=== PATIENT | female | born 1970 | race Caucasian/White ===

== ENCOUNTER 2023-02-22 16:29 | Emergency (ER) | payer MEDICAID, SELFPAY ==
[2023-02-22 16:41] VITALS: BP 131/89; PULSE 89; RESP 18; TEMP 36.6; O2SAT 99
--- NOTE | 2023-02-22 16:50 | ED.GENADULT ---
HPI - General Adult General Chief complaint: Ear Stated complaint: cotton stuck in left ear Source: patient Mode of arrival: ambulatory Limitations: no limitations History of Present Illness HPI narrative: Patient presents for evaluation of cotton in the left ear canal. She temp today clean her ears last night with a Q-tip out of her left ear, the cotton was no longer adhered to the swab. She denies any tinnitus, hearing loss, drainage from the ear. She attempted to removal unsuccessfully. A friend attempted to irrigate the ear without successful removal of the cotton. Related Data Home Medications Medication Instructions Recorded Confirmed budesonide-formoterol HFA 160 2 puff inhalation BID 02/22/23 02/22/23 mcg-4.5 mcg/actuation aerosol inhaler (Symbicort) lisinopril 10 mg tablet 10 mg PO DAILY 02/22/23 02/22/23 montelukast 10 mg tablet 10 mg PO DAILY 02/22/23 02/22/23 phentermine 37.5 mg tablet 37.5 mg PO DAILY 02/22/23 02/22/23 sertraline 100 mg tablet 100 mg PO DAILY 02/22/23 02/22/23 Allergies Allergy/AdvReac Type Severity Reaction Status Date / Time No Known Allergies Allergy Verified 02/22/23 16:48 Review of Systems Review of Systems: CONSTITUTIONAL: Denies fever, chills, or sweats. EYES: Denies visual changes, redness, or discharge. ENT: Reports foreign body in left ear. Denies rhinorrhea, congestion, sore throat, tinnitus, hearing loss, drainage from the ear or otalgia. CARDIOVASCULAR: Denies chest pain, palpitations, or edema. RESPIRATORY: Denies cough or dyspnea. GASTROINTESTINAL: Denies abdominal pain, nausea, vomiting, or diarrhea. GENITOURINARY: Denies dysuria or hematuria. SKIN: Denies rash or itching. MUSCULOSKELETAL: Denies back pain, joint pain, or myalgia. NEUROLOGIC: Denies headache, numbness, dizziness, or weakness. PSYCHIATRIC: Denies anxiety or depression. [facility] Past Medical History Medical History Asthma Surgical History Surgical History No pertinent past surgical history Family History Family History Mother Family history non-contributory Social History Social History (Reviewed 02/22/23 @ 17:07 by Vinnie Feliz, [facility], ) Substance use: never Gender identity (if verbalized by the patient): Female Spiritual care concerns: No Exam Narrative: GENERAL: Well-appearing, well-nourished, and in no acute distress. HEAD: Normocephalic, atraumatic. EYES: PERRLA and EOMI. ENT: Nares clear, no rhinorrhea or epistaxis. Mucous membranes moist. Oropharynx without tonsillar hypertrophy exudate or other lesions. Left ear canal is erythematous. There is a white foreign body present in left ear canal consistent with reported history of cotton ball NECK: Supple. No adenopathy or masses. No carotid bruits or JVD CHEST: Clear to auscultation. No respiratory distress. No wheezes rales or rhonchi HEART: Regular rate and rhythm. No murmur heard. Normal peripheral pulses. ABDOMEN: Soft, nontender, nondistended, normal active bowel sounds. EXTREMITIES: Normal range of motion. No edema. SKIN: Warm, dry, no rash. NEURO: No focal deficits. Alert and oriented x3. PSYCH: Normal mood and affect. Course Course Emergency Course: This is a 52-year-old female who presented for evaluation of a foreign body in left ear. Cotton ball was removed upon 1st attempt using alligator forceps. Patient tolerated well. No complications. There was erythema in ear canal on my initial evaluation, likely 2/2 efforts she made to remove prior to coming here. Will dc with ofloxacin. Follow up with primary provider. Go to the ER for worsening symptoms. Pt in agreement with plan of care. Level of Care: Express Care Visit Vital Signs Vital signs: Vital Signs Temperature 36.6 C 02/22/23 16:41 Pulse Rate
== END 2023-02-22 16:52 | disposition home or self-care (01) ==
PROVIDERS: Emergency Provider Nurse Practitioner
DX: T16.2XXA Foreign body in left ear, initial encounter (principal); J45.909 Unspecified asthma, uncomplicated
CPT/HCPCS: 69200; 99213; G0463